=== PATIENT | female | born 1945 | race Caucasian/White ===

== ENCOUNTER 2016-09-06 16:27 | Observation (INO) ==
[2016-09-06] MEDS ORDERED: 0.9 % Sodium Chloride 500 ML IVC ONE (16:36)
--- NOTE | 2016-09-06 16:42 | Emergency Department Note ---
Disposition Clinical Impression: Dizziness, Near syncope Chest pain Qualifiers: Chest pain type: unspecified Qualified Code(s): R07.9 - Chest pain, unspecified Disposition: Admitted As Inpatient Condition: Fair Referrals: aMster Ruffin MD [Primary Care Provider] - Forms: ED Satisfaction Letter Time of Disposition: 18:43 Chest Pain HPI - General Chief Complaint: ED Chest Pain Stated Complaint: CP Time Seen by Provider: 09/06/16 16:32 Source: patient, family Limitations: no limitations Vital Signs Reviewed: Yes Nursing Notes Reviewed: Yes - History of Present Illness HPI Narrative: Patient presents to the ED with the chief complaint of chest discomfort. has no history of coronary artery disease or cerebrovascular disease, but her mother does at age 74. She states that for the last 2-3 days. She has had intermittent episodes of feeling very woozy and off balance. She states that at times she would feel dizzy like the room is spinning, but most of the time she felt like she was going to pass out. She states that the symptoms of come and gone over the past 3 days. However, today about 3 hours ago she got the symptoms, but also had diaphoresis and nausea. She states the nausea as stated with her and has not gone away. She also developed a heaviness in her chest that radiated into her shoulder blade her shoulder and her left jaw. States that pain is gone but she still feels "off". She has a history of hypertension and states that has been fairly well-controlled. No fever, cough, headache, changes in vision including diplopia, numbness or weakness in her extremities, facial droop or slurred speech. Severity scale (1-10): 0 - Related Data Home Medications Medication Instructions Recorded Confirmed Aspirin [Lo-Dose Aspirin EC] 09/06/16 Metoprolol [Lopressor] 25 mg PO BID 09/06/16 09/06/16 Prolia (For Outpatient Infusion) 09/06/16 Zocor 09/06/16 Allergies Allergy/AdvReac Type Severity Reaction Status Date / Time aloe Allergy Mild See Verified 07/05/15 11:12 Comments dipyridamole AdvReac Headache Verified 07/05/15 11:12 [From Persantine] nitrofurantoin AdvReac Headache Verified 07/05/15 11:12 [From Macrodantin] Sulfa (Sulfonamide AdvReac See Verified 07/05/15 11:12 Antibiotics) Comments All systems ED: reviewed and negative except as stated. Cardiovascular: Reports: chest pain Gastrointestinal: Reports: nausea Neurological: Reports: vertigo Chest Pain PMH - Past Medical History Medical history: Reports: GERD, hyperlipidemia, hypertension, migraine, osteoporosis Psychiatric history: Reports: no psych history - Social History Smoking Status: Never smoker Alcohol use: Reports: none Drug use: Reports: none Physical Exam - General Limitations: no limitations General appearance: alert, in no apparent distress - Head Head exam: atraumatic, normocephalic, normal inspection - Eye Eye exam: Present: normal appearance, PERRL, EOMI - ENT ENT exam: normal exam, normal oropharynx, mucous membranes moist - Neck Neck exam: Present: normal inspection, full ROM, trachea midline - Chest Chest inspection: Present: normal inspection, symmetric chest wall rise - Respiratory Respiratory exam: Present: normal lung sounds bilaterally - Cardiovascular Cardiovascular exam: Present: regular rate, normal rhythm, normal heart sounds - Abdominal Exam Abdominal exam: Present: soft, Non-Tender. Absent: tenderness, distention, guarding, rebound, rigidity - Extremities Exam Extremities exam: Present: normal inspection, full ROM. Absent: tenderness, pedal edema - Back Exam Back exam: Present: normal inspection, full ROM. Absent: tenderness - Neurological Exam Neurological exam: Present: alert, oriented X3 - Expanded Neurological Exam Patient oriented to: Present: person, place, time Speech: Present: fluid speech Cranial nerves: EOM function (II, III, IV, ): Normal (Testing extraocular movement does induce her symptoms), facial sensation (V): Normal, facial palsy ( VII): Normal, spinal accessory function (XI): Normal, tongue deviation (XII): Normal Cerebellar function: finger to nose: Normal Cerebellar function: normal gait Motor strength - LUE: 5/5 Motor strength - RUE: 5/5 Motor strength - LLE: 5/5 Motor strength - RLE: 5/5 Upper motor neuron exam: drea neglect: Absent bilaterally, pronator drift: Absent bilaterally, sensory extinction: Absent bilaterally Sensory exam upper extremity: light touch: Normal Sensory exam lower extremity: light touch: Normal Coma Scale Eye Opening: Spontaneous Coma Scale Motor Response: Obeys Commands Coma Scale Verbal Response: Oriented Coma Scale Total: 15 - Psychiatric Psychiatric exam: Present: normal affect, normal mood - Skin Skin exam: Present: warm, dry, intact, normal color Course Course Narrative: 70 -year-old female presenting with chest heaviness and discomfort. Also having some nausea and vertigo-type symptoms. Patient is not describing classic BPPV and does have her symptoms induced with extraocular movement testing. However, there are no neurological findings to suggest a central cause. We will evaluate her chest pain and will also CT her head. Follow this is negative, we Will admit to the hospitalist for chest pain and will likely request MRI as an inpatient to rule out posterior circulation issues. I do not think that she is acutely having a posterior circulation sharp. - Reevaluation(s) Reevaluation #1: Patient is feeling better after Zofran. Still is having some intermittent wooziness and fuzziness. Neuro exam remained stable. We will try some meclizine while she is down here. She still will be admitted for carotid ultrasound, likely MRI in the morning. Vital Signs Temperature 97.6 F 09/06/16 16:31 Pulse Rate 80 09/06/16 16:31 Respiratory Rate 16 09/06/16 16:31 Blood Pressure 195/103 09/06/16 16:31 O2 Sat by Pulse Oximetry 100 09/06/16 16:31 Temperature 97.6 F 09/06/16 16:31 Pulse Rate 79 09/06/16 18:30 Respiratory Rate 16 09/06/16 18:30 Blood Pressure 155/80 09/06/16 18:30 O2 Sat by Pulse Oximetry 97 09/06/16 18:30 Oxygen Delivery Oxygen Delivery Room Air Chest Pain - Medical Records Medical records reviewed: Yes I reviewed the patient's medical records. - Lab Data Lab results reviewed: Yes I reviewed the patient's lab results. Result diagrams: 09/06/16 16:37 09/06/16 16:37 Lab Results 09/06/16 09/06/16 09/06/16 Range/Units 16:37 16:37 16:37 WBC 5.2 (4.3-11.1) K/mcL RBC 4.79 (3.82-4.97) M/mcL Hgb 14.2 (11.5-15.4) g/dL Hct 41.6 (35.3-44.9) % MCV 86.8 (83.0-100.0) fL MCH 29.6 (28.0-33.3) pg MCHC 34.1 (31.6-35.5) g/dL RDW 11.6 (11.5-14.5) % Plt Count 193 (140-400) K/mcL MPV 9.7 (9.4-12.4) fL Immature Gran % 0.2 (0-4) % Seg Neutrophils % 42.8 % Lymphocytes % 43.9 % Monocytes % 10.6 % Eosinophils % 1.9 % Basophils % 0.6 % Neutrophils # 2.2 (1.6-8.9) K/mcL Lymphocytes # 2.3 (0.6-4.6) K/mcL Monocytes # 0.6 (0.0-1.3) K/mcL Eosinophils # 0.1 (0.0-0.6) K/mcL Basophils # 0.0 (0.0-0.2) K/mcL PT 10.6 (9.4-12.1) Seconds INR 1.0 APTT 35.3 (26.0-36.0) Seconds Sodium 142 (136-145) mEq/L Potassium 3.6 (3.5-4.5) mEq/L Chloride 105 (98-109) mEq/L Carbon Dioxide 30 H (19-29) mEq/L BUN 15 (7-20) mg/dL Creatinine 0.95 (0.57-1.11) mg/dL Est GFR ( Amer) > 60 (> 60) Est GFR (Non-Af Amer) 58 L (> 60) BUN/Creatinine Ratio 16 (6-26) Glucose 102 H (70-99) mg/dL Calculated Osmolality 295 (280-300) Calcium 9.7 (8.6-10.8) mg/dL Total Bilirubin 0.7 (0.2-1.2) mg/dL Direct Bilirubin 0.3 (0.0-0.5) mg/dL Indirect Bilirubin 0.4 (0.0-1.2) mg/dL AST 21 (5-34) Units/L ALT 13 (0-55) Units/L Alkaline Phosphatase 64 (38-126) Units/L Troponin I (0-0.03) ng/mL Serum Total Protein 7.6 (6.0-8.3) g/dL Albumin 4.2 (3.5-5.0) g/dL Globulin 3.4 (2.4-3.5) g/dL Albumin/Globulin Ratio 1.2 (1.1-2.2) Lipase 31 (8-78) Units/L 09/06/16 Range/Units 16:37 WBC (4.3-11.1) K/mcL RBC (3.82-4.97) M/mcL Hgb (11.5-15.4) g/dL Hct (35.3-44.9) % MCV (83.0-100.0) fL MCH (28.0-33.3) pg MCHC (31.6-35.5) g/dL RDW (11.5-14.5) % Plt Count (140-400) K/mcL MPV (9.4-12.4) fL Immature Gran % (0-4) % Seg Neutrophils % % Lymphocytes % % Monocytes % % Eosinophils % % Basophils % % Neutrophils # (1.6-8.9) K/mcL Lymphocytes # (0.6-4.6) K/mcL Monocytes # (0.0-1.3) K/mcL Eosinophils # (0.0-0.6) K/mcL Basophils # (0.0-0.2) K/mcL PT (9.4-12.1) Seconds INR APTT (26.0-36.0) Seconds Sodium (136-145) mEq/L Potassium (3.5-4.5) mEq/L Chloride (98-109) mEq/L Carbon Dioxide (19-29) mEq/L BUN (7-20) mg/dL Creatinine (0.57-1.11) mg/dL Est GFR ( Amer) (> 60) Est GFR (Non-Af Amer) (> 60) BUN/Creatinine Ratio (6-26) Glucose (70-99) mg/dL Calculated Osmolality (280-300) Calcium (8.6-10.8) mg/dL Total Bilirubin (0.2-1.2) mg/dL Direct Bilirubin (0.0-0.5) mg/dL Indirect Bilirubin (0.0-1.2) mg/dL AST (5-34) Units/L ALT (0-55) Units/L Alkaline Phosphatase (38-126) Units/L Troponin I 0.00 (0-0.03) ng/mL Serum Total Protein (6.0-8.3) g/dL Albumin (3.5-5.0) g/dL Globulin (2.4-3.5) g/dL Albumin/Globulin Ratio (1.1-2.2) Lipase (8-78) Units/L - Radiology Data Radiology results reviewed: Yes I reviewed the patient's radiology results. - EKG Data EKG attestation: Yes I reviewed and interpreted this EKG. EKG results narrative: Sinus rhythm, rate 81, OK interval 156, QRS 90, QTC 405, normal axis, no ischemic changes S.B.A.R. - S.B.A.RNitesh Situation: Demographics, MOA Background: Presenting Complaint, Relevant PMH, Meds, & Allergies Assessment: Vital Signs, Course and respsone to treatment, Exam Concerns, Patient/Family Expectation, Pertinant Lab Results, Outstanding Labs Recommendation: Recommendation based on pending studies, treatments, or consults S.B.A.RNitesh Report Given to: Dr. Kerry Salinas Repor Time: 18:44 Attestation Statement - Attestation Attestation: Patient was seen with resident physician. I reviewed the history, physical, assessment and plan, and agree with the findings. I also personally evaluated this patient and had [id number] time with this patient. 70-year-old female presents to the emergency department with a chief complaint of dizziness and a funny feeling in her chest neck and arm. Patient states she has a family history her mom side of cardiac disease. When pressed she says the weird feeling in her chest is more of a heaviness or slight pressure with similar feelings in her neck and arm. She said she sees Dr. Streeter, but she has not had symptoms in the past has not had a cardiac workup. She is of a history of hypertension which is well controlled. She says the episodes of dizziness have lasted longer than the chest discomfort which currently she does not have. She describes no focal neurologic deficits but did say that her episode today included the dizziness with some nausea and diaphoresis as well. She had no vomiting. She denies diarrhea or fevers. On examination vital signs are stable. ENT is normal. Heart and lungs are normal. Abdomen is soft and nontender. Extremities are unremarkable. Neurologically the patient is intact with no focal neurologic deficits or findings. EKG shows no acute ischemic changes we will do cardiac workup then including head CT scan just to evaluate a little bit better for the dizziness. Once workup is complete we will admit the patient to the hospital for chest pain and rule out. She remained hemodynamically stable in the emergency department. Agree with the resident physician assessment and plan.
[2016-09-06 16:54] LABS: Basophils % 0.6 %; Eosinophils # 0.1 K/mcL (0.0-0.6); Eosinophils % 1.9 %; Hematocrit 41.6 % (35.3-44.9); Hemoglobin 14.2 g/dL (11.5-15.4); Immature Granulocytes % 0.2 % (0-4); Lymphocytes # 2.3 K/mcL (0.6-4.6); Lymphocytes % 43.9 %; Mean Corpuscular HGB Conc 34.1 g/dL (31.6-35.5); Mean Corpuscular Hemoglobin 29.6 pg (28.0-33.3); Mean Corpuscular Volume 86.8 fL (83.0-100.0); Mean Platelet Volume 9.7 fL (9.4-12.4); Monocytes # 0.6 K/mcL (0.0-1.3); Monocytes % 10.6 %; Neutrophils # 2.2 K/mcL (1.6-8.9); Platelet Count 193 K/mcL (140-400); Red Blood Count 4.79 M/mcL (3.82-4.97); Red Cell Distribution Width 11.6 % (11.5-14.5); Segmented Neutrophils % 42.8 %
[2016-09-06 16:58] LABS: Prothrombin Time 10.6 Seconds (9.4-12.1)
[2016-09-06 17:00] LABS: Activated Partial Thrombo Time 35.3 Seconds (26.0-36.0)
[2016-09-06 17:03] LABS: Alanine Aminotransferase 13 Units/L (0-55); Albumin 4.2 g/dL (3.5-5.0); Albumin/Globulin Ratio 1.2 (1.1-2.2); Alkaline Phosphatase 64 Units/L (38-126); Aspartate Amino Transferase 21 Units/L (5-34); BUN/Creatinine Ratio 16 (6-26); Bilirubin,Direct 0.3 mg/dL (0.0-0.5); Bilirubin,Indirect 0.4 mg/dL (0.0-1.2); Bilirubin,Total 0.7 mg/dL (0.2-1.2); Blood Urea Nitrogen 15 mg/dL (7-20); Calcium 9.7 mg/dL (8.6-10.8); Carbon Dioxide 30 mEq/L (19-29); Chloride 105 mEq/L (98-109); Globulin 3.4 g/dL (2.4-3.5); Glucose 102 mg/dL (70-99); Lipase 31 Units/L (8-78); Osmolality,Calculated 295 (280-300); Potassium 3.6 mEq/L (3.5-4.5); Sodium 142 mEq/L (136-145); Total Protein 7.6 g/dL (6.0-8.3); eGFR For African Americans > 60 (> 60); eGFR For Non-African Americans 58 (> 60)
[2016-09-06] MEDS ORDERED: Aspirin 81 MG TAB.CHEW PO ONE (17:09)
[2016-09-06] MEDS ORDERED: Ondansetron 4 MG/2 ML VIAL IVP ONE (17:20)
[2016-09-06 20:58] LABS: Bilirubin,Urine Negative (Negative); Blood,Urine Negative (Negative); Clarity,Urine Clear (Clear); Color,Urine Yellow (Yellow); Glucose,Urine (UA) Normal (Normal); Ketones,Urine Negative (Negative); Leukocyte Esterase,Urine Negative (Negative); Nitrite,Urine Negative (Negative); PH,Urine 7.5 pH Units (5.0-8.0); Protein,Urine Negative (Neg-Trace); Specific Gravity,Urine 1.011 (1.010-1.025); Urobilinogen,Urine Normal (Normal)
--- NOTE | 2016-09-06 21:17 | Internal Med History&Physical ---
Date of Encounter: 09/06/16 Time of Encounter: 20:30 Assessment and Plan (1) Near syncope Current visit: Yes Status: Acute Associated with chest discomfort Place under observation Due to her age and HTN history, will obtain stress test and ECHO Telemetry If hospital work up negative, she may need outpatient Holter monitoring after discharge with her PMD (2) HTN (hypertension) Current visit: Yes Status: Chronic Resume home meds Stable Qualifiers: Hypertension type: essential hypertension Qualified Code(s): I10 - Essential (primary) hypertension (3) GERD (gastroesophageal reflux disease) Current visit: Yes Status: Chronic Stable Qualifiers: Esophagitis presence: esophagitis presence not specified Qualified Code(s) : K21.9 - Gastro-esophageal reflux disease without esophagitis (4) Dyslipidemia Current visit: Yes Status: Chronic Resume statins (5) Osteoporosis Current visit: Yes Status: Acute Qualifiers: Osteoporosis type: age-related Presence of current pathological fracture: without current pathological fracture Qualified Code(s): M81.0 - Age-related osteoporosis without current pathological fracture Internal Medicine - H&P: HPI Chief complaint: Dizziness Admitted From: Emergency Dept Plans for Post Hospital Care: Home History of present illness: Ms. Duong is a 70 year old female who presented to the ER due to dizziness. She had her first episode on at 2030 hours when she was washing her face in the bathroom before going to bed. She felt like she was going to pass out. She sat down and kept her head between her legs and it resolved in about 2 min. She had a second episode later that night at 1 AM while she was sleeping. She did not have any further episodes Thursday. She had another episode that happened today at 1530 hours and lasted for 4 hours until she was in the hospital. This episode felt more like "room spinning around her" and associated with nausea and sweating. She also reports chest discomfort though she denies chest pain or palpitations. She never had a stress test or an ECHO. Denies sick contacts or recent travel. Past Med Surg Social Fam HX - Past Medical History Attestation: Yes The following information was validated with the patient. Source: patient Medical history: GERD, hyperlipidemia, hypertension, migraine, osteoporosis Psychiatric history: no psych history - Past Surgical History Surgical History: hysterectomy - Social History Smoking Status: Never smoker Smokeless Tobacco Status: No Alcohol use: none Drug use: none Current living situation: With Family Activity Level: Independent ambulation, Very active - Additional Family History Additional family history: reviewed; not pertinent Internal Medicine - H&P: Meds Aspirin [Lo-Dose Aspirin EC] 09/06/16 [History] Metoprolol [Lopressor] 25 mg PO BID 09/06/16 [History] Prolia (For Outpatient Infusion) 09/06/16 [History] Zocor 09/06/16 [History] Allergies aloe Allergy (Mild, Verified 07/05/15 11:12) See Comments Burning Sensation dipyridamole [From Persantine] Adverse Reaction (Verified 07/05/15 11:12) Headache nitrofurantoin [From Macrodantin] Adverse Reaction (Verified 07/05/15 11:12) Headache Sulfa (Sulfonamide Antibiotics) Adverse Reaction (Verified 07/05/15 11:12) See Comments Pt states she has "built up an immunity" to this medication. All Systems PM: A 10-system review of systems was performed and is negative for pertinent findings except as documented above in the HPI. Review of systems: 10 systems reviewed and negative except as mentioned in the HPI - Constitutional Vitals: Temp Pulse Resp BP Pulse Ox 97.9 F 78 16 159/93 95 09/06/16 19:28 09/06/16 19:28 09/06/16 19:28 09/06/16 19:28 09/06/16 19:28 General appearance: Present: cooperative, A&O X 3, pleasant, no acute distress, answers questions appropriately - Head Head exam: Present: atraumatic, normal inspection - Eye Eye exam: Present: PERRL, conjuntiva pink, sclera anicteric Pupils: Present: PERRL - ENT ENT exam: Present: mucous membranes moist, normal exam, normal oropharynx - Neck Neck exam general surgery: Present: supple, trachea midline. Absent: lymphadenopathy - Respiratory Respiratory exam: Present: CTAB. Absent: accessory muscle use, chest wall tenderness, rales, rhonchi, wheezes - Cardiovascular Cardiovascular exam: Present: RRR, +S1, +S2. Absent: diastolic murmur, gallop, rubs, systolic murmur - GI/Abdominal GI/Abdominal exam: Present: normal bowel sounds, soft, no peritoneal signs. Absent: distended, tenderness - Neurological Exam Neurological exam: Present: alert, CN II-XII intact, oriented X3, no focal deficits. Absent: pronater drift, facial droop, speech deficit - Psychiatric Psychiatric exam: Present: normal affect, normal mood - Skin Skin exam: Present: dry, intact Internal Med - H&P Results - Labs CBC & Chem 7: 09/06/16 16:37 09/06/16 16:37 Labs: Urine 09/06/16 Range/Units 20:49 Urine Color Yellow (Yellow) Urine Clarity Clear (Clear) Urine pH 7.5 (5.0-8.0) pH Units Ur Specific [place] 1.011 (1.010-1.025) Urine Protein Negative (Neg-Trace) mg/dL Urine Glucose (UA) Normal (Normal) mg/dL - EKG Data -: EKG Interpreted by Myself EKG shows normal: sinus rhythm, ST-T waves (No ST-T changes suggestive of ischemia) Rate: normal - EKG Data Prior EKG available for review: no
[2016-09-07] MEDS ORDERED: Regadenoson 0.4 MG/5 ML SYRINGE IVP ONE (05:56)
--- NOTE | 2016-09-07 09:32 | Electrocardiograph Report ---
[address] [address] Test Date: 2016-09-06 Pat Name: Akosua Duong Department: 102 Room: 3B Gender: F Frame Runner: Floyd : 1945 Requested By: Dinesh Gonzalez Order Number: [id number] Reading MD: Court Jones Measurements Intervals [place] Rate: 81 P: 48 IN: 156 QRS: 18 QRSD: 90 T: 23 QT: 367 QTc: 405 Interpretive Statements SINUS RHYTHM Electronically Signed On 09-07-2016 9:31:[address] Jones
[2016-09-07] MEDS ORDERED: *HR* HYDROcodone/Acet 5/325 mg TABLET PO PRN (11:57)
[2016-09-07] MEDS ORDERED: *HR* Morphine 2 MG/ML SYRINGE IVP PRN (11:57)
[2016-09-07] MEDS ORDERED: Naloxone 0.4 MG/ML INJ IVP PRN (11:57)
[2016-09-07] MEDS: Ibuprofen 400 MG TABLET PO PRN ×2 (12:25→19:12)
--- NOTE | 2016-09-07 13:02 | Nuclear Medicine Stress Report ---
Regadenoson Nuclear Stress Name: Akosua Duong Date of Study: 09/07/2016 Date: 1945 Ht: 66.0 in Medical Record#: [id number] Age: 70 Wt: 187.0 lb Gender: Female Order #: [id number] Location: [facility] Room: [facility] Supervising Provider: Cristóbal Ozuna CNP Reading Physician: Court Jones DO Ordering Physician: Tonja Cummins CNP Primary Care Physician: Master Ruffin MD Stress Technologist: Odalys Parrish RRT [place] Department Supervisor: Everton Hernandez Indications: Chest Pain Impression: Perfusion imaging was negative for ischemia or infarct. Pharmacologic ECG was negative for ischemia at the level of heart rate achieved. Gated EF = >70%. History: Hypertension Hypercholesteremia Stress Test Summary: Stress Test Type: Pharmacologic Baseline Information: Initial Heart Rate: 86 Blood Pressure: 178/80 Stress Information: Test Terminated Due to (primary): As per protocol Maximum Blood Pressure: 180/88 Maximum Heart Rate: 124 Percent Maximum Heart Rate Achieved: 84 Double Product: [id number] METS Reached: 1 Symptoms: No chest symptoms Nuclear Summary: SPECT myocardial perfusion imaging using Tc99m Sestamibi given intravenously was performed at rest and following cardiac stress testing. The resting images were obtained following initial dose of 11.0 mCi. Following stress an additional dose of 35.1 mCi was given at peak exercise or 30 seconds post regadenoson infusion. Medication Given: Time Medication Dose Units Route Findings: Stress Note * Resting ECG demonstrated normal sinus rhythm with nonspecific ST abnormalities. * Pharmacologic stress ECG is negative for ischemia at level of heart rate achieved. * No arrhythmias were noted during stress. * Patient had no chest pain during stress. Hemodynamic responses * Normal hemodynamic responses to pharmacologic stress. Study Quality * Study quality is good. Gated EF > 70% * Gated EF > 70%. Left Ventricle * The left ventricle is not dilated. NORMALS * Normal wall motion. * Normal segmental perfusion in stress. * Normal Segmental Perfusion in rest. TID * No evidence of transient ischemic dilatation. Lung Uptake * There is no evidence of increase lung uptake. Updated by Court Jones on 09/07/2016 12:56:56 PM electronically signed on 09/07/2016 12:57:33 PM with status of Final
--- NOTE | 2016-09-07 16:47 | Internal Med Progress Note ---
Date of Encounter: 09/07/16 Time of Encounter: 16:00 - Assessment and plan (1) Dizziness Current Visit: Yes Status: Resolved Assessment and plan: Symptoms are currently resolved. She states she had an episode earlier today where she felt as if she was off balance for approximately 2-3 minutes that resolved on its own. She states this felt different than yesterday where she felt as if the room was spinning. Head CT negative. Hypertension noted, the dressing. Urinalysis negative. Carotid ultrasound left-sided nonstenotic, right-sided moderate plaque. Echocardiogram still pending. Stress test negative. We will continue to adjust her blood pressure and await echocardiogram results. Patient also stating that she has a lot of seasonal allergies have been worse over the past couple weeks which could be attributed to her dizziness. Will observe overnight and likely discharge tomorrow pending clinical outcomes. ITS Impressions Chest X-Ray 09/06/16 16:37 IMPRESSION: No acute disease D/ / Raphael Stewart MD / Raphael Stewart MD Interpreting Provider: Raphael Stewart MD Head CT 09/06/16 17:12 IMPRESSION: No acute intracranial abnormality. D/ / Tru Walters MD / Tru Walters MD Interpreting Provider: Tru Walters MD 09/07/16 13:32 - Vascular Preliminary by Sintia Green [facility] Num: [id number] : 1945 Patient Age: 70 Bilateral carotid duplex exam completed. 40-50% stenosis located on right ICA. Within normal limits on left side. Regadenosen nuclear stress test impression: Perfusion imaging was negative for ischemia or infarct. Pharmacologic ECG was negative for ischemia at the level of heart rate achieved. Gated ejection fraction greater than 70%. (2) Near syncope Current Visit: Yes Status: Acute (3) Chest pain Current Visit: Yes Status: Resolved Assessment and plan: Patient has denied chest pain. She states that on the day of presentation she felt chest pressure but no overt pain. Chest x-ray negative. Stress test negative. ACS ruled out. Echocardiogram still pending. Qualifiers: Chest pain type: unspecified Qualified Code(s): R07.9 - Chest pain, unspecified (4) GERD (gastroesophageal reflux disease) Current Visit: Yes Status: Chronic Assessment and plan: denies current symptoms. continue PPI Qualifiers: Esophagitis presence: esophagitis presence not specified Qualified Code(s) : K21.9 - Gastro-esophageal reflux disease without esophagitis (5) HTN (hypertension) Current Visit: Yes Status: Chronic Assessment and plan: At home, patient is on metoprolol 25 mg twice a day which has been continued. She was markedly hypertensive upon arrival however she stated that she was very scared and upset. She has been borderline hypertensive both until this afternoon. She is calming down, no indication for medication adjustments at this time as she states she checks her blood pressure regularly at home and it usually runs well. We will continue to trend and adjust her medications if indicated. Qualifiers: Hypertension type: essential hypertension Qualified Code(s): I10 - Essential (primary) hypertension (6) Osteoporosis Current Visit: Yes Status: Chronic - Subjective Interval history: Patient seen and examined. On examination, patient sitting upright in bed conversing with her . Patient stating that she had a bout of nausea approximately one hour ago but states it is getting better. She also states that her abdomen has been gurgling. She states she had an episode of dizziness where she felt off balance for approximately 2-3 minutes earlier today but has not had any episodes since. - Constitutional Vitals: Temp Pulse Resp BP Pulse Ox 98.0 F 70 16 139/88 94 09/07/16 15:43 09/07/16 15:43 09/07/16 15:43 09/07/16 15:43 09/07/16 15:43 General appearance: Present: cooperative, A&O X 3, pleasant, no acute distress, answers questions appropriately - Head Head exam: Present: atraumatic, normocephalic - Eye Eye exam: Present: PERRL, conjuntiva pink, sclera anicteric Pupils: Present: PERRL - Neck Neck exam general surgery: Present: supple, trachea midline. Absent: lymphadenopathy - Respiratory Respiratory exam: Present: CTAB. Absent: accessory muscle use, rales, respiratory distress, rhonchi, wheezes - Cardiovascular Cardiovascular exam: Present: RRR, +S1, +S2. Absent: diastolic murmur, gallop, rubs, systolic murmur - GI/Abdominal GI/Abdominal exam: Present: normal bowel sounds, soft, no peritoneal signs. Absent: distended, tenderness - Extremities Exam Extremities exam: Present: warm, radial pulses palpable and symetrical. Absent : calf tenderness, cyanotic, pedal edema - Neurological Exam Neurological exam: Present: alert, CN II-XII intact, oriented X3, no focal deficits, strengths equal and symetr throughout. Absent: pronater drift, facial droop, speech deficit - Skin Skin exam: Present: dry, intact, normal color, warm Internal Medicine: Result - Labs CBC & Chem 7: 09/06/16 16:37 09/06/16 16:37 Labs: Cardiac Enzymes 09/07/16 Range/Units 06:39 Troponin I 0.01 (0-0.03) ng/mL Urine 09/06/16 Range/Units 20:49 Urine Color Yellow (Yellow) Urine Clarity Clear (Clear) Urine pH 7.5 (5.0-8.0) pH Units Ur Specific Emblem 1.011 (1.010-1.025) Urine Protein Negative (Neg-Trace) mg/dL Urine Glucose (UA) Normal (Normal) mg/dL - ABG Interpretation ABG results: PT/INR, D-dimer PT 10.6 Seconds (9.4-12.1) 09/06/16 16:37 Consult Discharge Plan - Plan Referrals: Master Ruffin MD [Primary Care Provider] -
[2016-09-07] MEDS ORDERED: Ondansetron 4 MG/2 ML VIAL IVP PRN (16:55)
[2016-09-07] MEDS ORDERED: *HR* Promethazine 25 MG/ML VIAL IVP PRN (16:55)
--- NOTE | 2016-09-07 17:23 | ECHO - Doppler Report ---
Echocardiogram Name: Akosua Duong Date of Study: 09/07/2016 Date: 1945 Ht: 66.0 in Medical Record#: [id number] Age: 70 Wt: 190.0 lb Gender: Female BSA: 1.96 Order #: [id number] Location: [facility] Room #: [facility] Reading Physician: Court Jones DO Dental Instrument Maker: Sintia Green Ordering Physician: Ramos Awad MD Primary Physician: Master Ruffin MD Indications: Near Syncope Impressions: LVEF 65%. Normal left ventricular size and systolic function. There is evidence of mild diastolic dysfunction of the left ventricle. Normal right ventricular size and function. Mild mitral regurgitation. Mild-moderate tricuspid regurgitation. Mild pulmonary hypertension. Left Ventricular Wall Motion: Rest Echo Findings All wall segments showed normal motion. Findings: Study Quality * Technically adequate exam. ECG Findings * Normal sinus rhythm. Left Ventricle * LVEF 65%. * Normal LV chamber size, wall thickness and function. * Mild left ventricular diastolic dysfunction. Aorta * Normally sized aortic root. Mitral Valve * Normal mitral valve structure. * No mitral stenosis. * Mild mitral regurgitation. Aortic Valve * No aortic regurgitation. * Trileaflet aortic valve. * Normal aortic valve structure. * No aortic stenosis. Tricuspid Valve * Normal tricuspid valve structure. * Mild-moderate tricuspid regurgitation. * Estimated RA pressure is 3 mmHg. * Estimated RVSP is 39 mmHg. * Mild pulmonary hypertension. Pulmonic Valve * Pulmonic valve is not well visualized. * No pulmonic stenosis. * No pulmonic regurgitation. Pulmonary Artery * Pulmonary artery not well visualized. Right Ventricle * Normal right ventricular structure and function. Right Atrium * Normal right atrial size. Pericardium * There is no pericardial effusion present. Left Atrium * Severely dilated left atrium. Interatrial Septum * No evidence of PFO by color Doppler. IVC * Normal IVC dimensions and inspiratory collapse. History Hypertension Hypercholesteremia Family History of CAD Measurements: BP: 165/ 88 2D Normal Values RVIDd: 3.20 cm <2.7 cm IVSd: 1.20 cm 0.6 - 1.0 cm LVIDd: 3.80 cm 3.7 - 5.6 cm LVPWd: 1.20 cm 0.6 - 1.1 cm LVIDs: 2.50 cm 1.5 - 3.6 cm AO: 2.40 cm < 4.0 cm LA: 4.60 cm 2.0 - 4.0cm %FS: 34.20 cm >25 % LA volume: 107 Mitral Valve Peak E:.70 m/sec Peak A:.91 m/sec E/A Ratio:0.8 Peak E' Lat Dainal:3.9 cm/s Peak E' Med Danial:3.51 cm/s E/E' Lat Ratio:17.8 E/E' Med Ratio:19.8 Tricuspid Valve TV Regurg Peak Grad: 36.00mmHg TV Regurg Peak Danial: 2.98m/sec Updated by Court Jones on 09/07/2016 5:16:54 PM electronically signed on 09/07/2016 5:17:47 PM with status of Final Wall Motion David: 1=Normal, 2=Hypokinesis, 3=Akinesis, 4=Dyskinesis, 5=Aneurysmal, 6=Hyperkinetic, X=Not Visualized (Blank)=Missing
[2016-09-08] MEDS ORDERED: Aspirin Enteric Coated 81 MG Tablet PO SCH (09:00)
--- NOTE | 2016-09-08 11:22 | Discharge Summary ---
Date of Encounter: 09/08/16 Time of Encounter: 10:15 - Discharge Diagnosis (1) Dizziness Priority: Primary Status: Resolved (2) Near syncope Priority: Primary Status: Resolved (3) Chest pain Priority: Primary Status: Resolved Qualifiers: Chest pain type: unspecified Qualified Code(s): R07.9 - Chest pain, unspecified (4) GERD (gastroesophageal reflux disease) Priority: Secondary Status: Chronic Qualifiers: Esophagitis presence: esophagitis presence not specified Qualified Code(s) : K21.9 - Gastro-esophageal reflux disease without esophagitis (5) HTN (hypertension) Priority: Secondary Status: Chronic Comments: At home, patient is on metoprolol 25 mg twice a day which has been continued. She was markedly hypertensive upon arrival however she stated that she was very scared and upset. She was borderline hypertensive on the first day of her admission, but became normotensive without a change to her medications. No indication for medication adjustments at this time as she states she checks her blood pressure regularly at home and it usually runs well. Qualifiers: Hypertension type: essential hypertension Qualified Code(s): I10 - Essential (primary) hypertension (6) Osteoporosis Priority: Secondary Status: Chronic - Discharge Medications Home Medications: Aspirin [Lo-Dose Aspirin EC] 81 mg PO DAILY 09/06/16 [History] Denosumab [Prolia (For Outpatient Infusion)] 60 mg SQ [id number] 09/06/16 [History ] Metoprolol [Lopressor] 25 mg PO BID 09/06/16 [History] Simvastatin [Zocor] 20 mg PO HS 09/06/16 [History] Benzonatate [Tessalon] 200 mg PO TID PRN 09/07/16 [History] Ca/D3/Mag#11/Zinc/Senior It Engineer/Amol/Bor [Caltrate 600+D Plus Tablet] 1 tab PO DAILY 09/07 [History] Fish Oil/Dha/Epa [Fish Oil 1,200 mg Fish Oil] 1,200 mg PO DAILY 09/07/16 [ History] Flaxseed Oil [[place]-3 Flaxseed Oil] 1,000 mg PO DAILY 09/07/16 [History] Hydrocodone Bit/Homatrop Me-Br [Hydrocodone-Homatropine Syrup] 5 ml PO Q4-6H PRN 09/07/16 [History] Multivit-Min/FA/Lycopen/Lutein [Centrum Silver Tablet] 1 tab PO DAILY 09/07/16 [ History] Omeprazole [PriLOSEC] 20 mg PO DAILY 09/07/16 [History] Ubidecarenone/Vitamin E [Co Q-10 50 mg Softgel] 50 mg PO DAILY 09/07/16 [History ] Allergies/Adverse Reactions: Allergies aloe Allergy (Mild, Verified 07/05/15 11:12) See Comments Burning Sensation dipyridamole [From Persantine] Adverse Reaction (Verified 07/05/15 11:12) Headache nitrofurantoin [From Macrodantin] Adverse Reaction (Verified 07/05/15 11:12) Headache Sulfa (Sulfonamide Antibiotics) Adverse Reaction (Verified 07/05/15 11:12) See Comments Pt states she has "built up an immunity" to this medication. Procedures/tests Complete & Pending: Procedures Performed prior 72 hours Category Date Time Status NM sebastian perf SPECT multi [NM] Routine Exams 09/06/16 21:13 Taken EV carotid duplex imaging BI Routine Y 09/07/16 21:13 Completed EV echocardiogram Routine Y 09/07/16 21:13 Completed SP pharm nuclear stress Routine Y 09/06/16 21:12 Completed Date of admission: 09/06/16 19:04 Primary care physician: Master Ruffin MD Discharging clinician: Tonja Cummins Anticipated date of discharge: 09/08/16 - Patient Status Disposition: Home, Self-Care Condition: Good Functional capacity at discharge: independent ambulation Overall status at discharge: patient is back to baseline - Discharge Instructions Follow Up With: Master Ruffin MD [Primary Care Provider] - 09/19/16 10:00 am Additional Instructions: Follow-up with primary care provider as scheduled - Diet and Activity Activity: increase activity as tolerated Diet: low fat, low cholesterol, low salt diet Hospital course: Ms. Duong is a 70 year old female who appears much younger than stated age with past medical history of GERD, hyperlipidemia, hypertension, migraines. Patient presented to the emergency room chief complaint of dizziness. Patient thinks she had an episode on the day prior to presentation when she was washing her face in the bathroom before going to bed in the evening and she felt like she was going to pass out. She sat down and put her has between her legs and that helped and the episode resolved after approximately 2 minutes. She had a second episode in the middle the night and woke her up but she was sleeping. She was asymptomatic the following day then the next day, she had another episode which lasted 4 hours which prompted her presentation to the emergency department. This most recent episode that prompted her presentation felt as if the room was spinning around her and was associated with nausea and sweating. Patient also reported chest discomfort though she denied overt chest pain or palpitations. Workup in the emergency department notable for accelerated hypertension but otherwise unremarkable. Chest x-ray negative. Head CT negative. Urinalysis negative. Patient was admitted to the hospitalist service for further evaluation and management. Patient became normotensive with the resumption of her regular home medication. Echocardiogram unremarkable with ejection fraction of 65% and mild diastolic dysfunction. Patient euvolemic on examination throughout this admission. Stress test was negative. Carotid ultrasound left-sided nonstenotic plaque, right-sided [id number] outpatient. Patient remained alert and oriented 3 throughout this 2 day admission. She had one two-minute bout of dizziness while admitted but was self resolving. She had an upright and steady gait without any focal neurological weakness is present. She was discharged home in stable condition with close outpatient follow-up recommended. ITS Impressions Chest X-Ray 09/06/16 16:37 IMPRESSION: No acute disease D/ / Raphael Stewart MD / Raphael Stewart MD Interpreting Provider: Raphael Stewart MD Head CT 09/06/16 17:12 IMPRESSION: No acute intracranial abnormality. D/ / Tru Walters MD / Tru Walters MD Interpreting Provider: Tru Walters MD 09/07/16 13:32 - Vascular Preliminary by Sintia Green [facility] Num: [id number] : 1945 Patient Age: 70 Bilateral carotid duplex exam completed. 40-50% stenosis located on right ICA. Within normal limits on left side. Echocardiogram impressions: LVEF 65%. Normal left ventricular size and systolic function. There is evidence of mild diastolic dysfunction of the left ventricle. Normal right ventricular size and function. Mild mitral regurgitation. Mild-moderate tricuspid regurgitation. Mild pulmonary hypertension. Regadenosen nuclear stress test impression: Perfusion imaging was negative for ischemia or infarct. Pharmacologic ECG was negative for ischemia at the level of heart rate achieved. Gated ejection fraction greater than 70%. - Time Spent with Patient Total time spent providing and/or coordinating discharge services: - Constitutional Vitals: Temp Pulse Resp BP Pulse Ox 97.7 F 68 16 126/85 97 09/08/16 07:06 09/08/16 07:06 09/08/16 07:06 09/08/16 07:06 09/08/16 07:06 General appearance: Present: cooperative, A&O X 3, pleasant, no acute distress, answers questions appropriately - Head Head exam: Present: atraumatic, normocephalic - Eye Eye exam: Present: PERRL, conjuntiva pink, sclera anicteric Pupils: Present: PERRL - Neck Neck exam general surgery: Present: supple, trachea midline. Absent: lymphadenopathy - Respiratory Respiratory exam: Present: CTAB. Absent: accessory muscle use, rales, respiratory distress, rhonchi, wheezes - Cardiovascular Cardiovascular exam: Present: RRR, +S1, +S2. Absent: diastolic murmur, gallop, rubs, systolic murmur - GI/Abdominal GI/Abdominal exam: Present: normal bowel sounds, soft, no peritoneal signs. Absent: distended, tenderness - Extremities Exam Extremities exam: Present: warm, radial pulses palpable and symetrical. Absent : calf tenderness, cyanotic, pedal edema - Neurological Exam Neurological exam: Present: alert, CN II-XII intact, normal gait, oriented X3, no focal deficits, strengths equal and symetr throughout. Absent: pronater drift, facial droop, speech deficit - Skin Skin exam: Present: dry, intact, normal color, warm
[2016-09-08 11:29] VITALS: BP 110/68
--- NOTE | 2016-09-09 10:14 | Carotid Imaging Report ---
Carotid Duplex Patient Name:Akousa Duong Order Number:[id number] Procedure Date:09/07/2016 Date:4Age:70 yrs Gender:Female Lt BP:165 / 88 mmHg Rt.BP:165 / 88 mmHgHeart Rate: Location:[facility] Room #: 3B Tray Setter:Sintia Green Referring MD:aRmos Awad MD office clerk:Master Ruffin MD Reading MD:Alcides Cervantes MD Primary Indications:Near syncope Risk Factors Yes/No Hypertension Hypercholesterolemia Impressions: Findings: Right proximal ICA has a moderate, 40-59% stenosis. Recommendations: Risk Factor Modification, Medical Therapy, and Follow up exam 12 months. Findings Carotid Duplex: Right: There is nonstenotic plaque in the right bifurcation. There is smooth heterogeneous plaque. There is 40-59% stenosis in the right proximal internal carotid artery. There is smooth homogeneous plaque. There is nonstenotic plaque in the right mid internal carotid artery. There is nonstenotic plaque in the right distal internal carotid artery. Prior Study: No prior study available for comparison. Carotid Results Right PSV EDV Assessment Proximal CCA 107 20 Normal Mid CCA 109 25 Normal Distal CCA 99 26 Normal Bifurcation 83 21 Non Stenotic Plaque Proximal ICA 125 36 40-59% stenosis Mid ICA 106 40 Non Stenotic Plaque Distal ICA 109 37 Non Stenotic Plaque ECA 97 18 Normal Vertebral Artery 51 11 Antegrade Flow Left PSV EDV Assessment Proximal CCA 111 18 Normal Mid CCA 107 18 Normal Distal CCA 106 21 Normal Bifurcation 78 17 Normal Proximal ICA 62 14 Normal Mid ICA 76 20 Normal Distal ICA 89 32 Normal ECA 89 9 Normal Vertebral Artery 60 13 Antegrade Flow Ratio's Right ICA/CCA Ratio: 1.15 ICA/CCA Values: 125/109 Left ICA/CCA Ratio: 0.83 ICA/CCA Values: 89/107 Updated by Alcides Cervantes MD on 09/09/2016 10:11:20 AM electronically signed on 09/09/2016 10:11:32 AM with status of Final
== END 2016-09-08 12:19 | disposition home or self-care (01) ==
LOC: 3BNU 16:27 → EMEROO 16:27 → 3BNU 19:05
PROVIDERS: ADMIT Internal Medicine Sleep Medicine; ATTEND Nurse Practitioner Family